=== PATIENT | female | born 1975 | race Native Hawaiian/Other Pacific Islander ===

== ENCOUNTER 2016-12-29 08:24 | Outpatient (CLI) | payer BC | END 2016-12-29 19:09 | disposition home or self-care (01) | LOC: MAMMO 08:24 | DX: Z12.31 Encounter for screening mammogram for malignant neoplasm of breast (principal) ==

== ENCOUNTER 2018-01-11 08:47 | Outpatient (CLI) | payer BC | END 2018-01-11 19:32 | disposition home or self-care (01) | LOC: MAMMO 08:47 | DX: Z12.31 Encounter for screening mammogram for malignant neoplasm of breast (principal) ==

== ENCOUNTER 2019-02-07 09:32 | Outpatient (CLI) | payer BC | END 2019-02-07 22:24 | disposition home or self-care (01) | LOC: MAMMO 09:32 | DX: Z12.31 Encounter for screening mammogram for malignant neoplasm of breast (principal) ==

== ENCOUNTER 2020-02-18 13:02 | Outpatient (CLI) | payer BC | END 2020-02-18 19:51 | disposition home or self-care (01) | LOC: MAMMO 13:02 | PROVIDERS: ATTEND Obstetrics & Gynecology | DX: Z12.31 Encounter for screening mammogram for malignant neoplasm of breast (principal) ==

== ENCOUNTER 2021-03-08 08:27 | Outpatient (CLI) | payer BC | END 2021-03-08 19:02 | disposition home or self-care (01) | LOC: MAMMO 08:27 | PROVIDERS: ATTEND Obstetrics & Gynecology | DX: Z12.31 Encounter for screening mammogram for malignant neoplasm of breast (principal) ==

== ENCOUNTER 2022-03-16 08:19 | Outpatient (CLI) | payer BC | END 2022-03-16 19:17 | disposition home or self-care (01) | LOC: MAMMO 08:19 | PROVIDERS: ATTEND Obstetrics & Gynecology | DX: Z12.31 Encounter for screening mammogram for malignant neoplasm of breast (principal) ==